=== PATIENT | female | born 1990 | race Caucasian/White ===

== ENCOUNTER 2020-08-05 16:13 | Inpatient (IN) | payer MEDICARE, MEDICAID, SELFPAY ==
[2020-08-05 16:49] VITALS: BP 136/85; PULSE 73; RESP 20; TEMP 37.2; O2SAT 99; BMI 26.2
[2020-08-05 17:12] VITALS: RESP 20
--- NOTE | 2020-08-05 17:20 | PC.NURSE ---
Pt currently in room, awaiting MD evaluation. [facility] called, requested evaluation to be faxed. Unclear whether she is a bed search- [facility] will call to confirm. Spoke w/ Shawn at [facility].
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
[2020-08-05 18:00] VITALS: RESP 18
--- NOTE | 2020-08-05 18:02 | PC.NURSE ---
Provider in to evaluate. Pt continues to present w/ organized thought process, pleasant. Per N, pt is a bed search. Continue to await evaluation.
--- NOTE | 2020-08-05 18:03 | PC.NURSE ---
Evaluation requested by CARE team.
--- NOTE | 2020-08-05 18:52 | PC.NURSE ---
[facility] returned call, spoke to CARE team, pt is an inpatient bed search. C Brandi aware, given evaluation. Labs cancelled per Amisha Paz .
[2020-08-05 19:53] VITALS: BP 124/79; PULSE 80; RESP 20; TEMP 36.8; O2SAT 98
--- NOTE | 2020-08-05 19:53 | PC.NURSE ---
Patient in her room watching TV, calm and quiet, compliant with care, compliant COVID swab/sent to lab/pending result. Denied distress, will continue to monitor.
[2020-08-05 21:11] LABS: COVID-19 Test Negative (Negative); IDNOW Serial# 9DD0AD1C
[2020-08-05 21:52] LABS: UPreg QC Valid YES; Urine Pregnancy NEGATIVE (NEGATIVE)
--- NOTE | 2020-08-05 22:19 | PC.NURSE ---
Patient is in her room watching TV, patient notified that her COVID test is negative, when asked about her medication patient reported she is not on any medication at this time, will continue to monitor.
[2020-08-05 22:26] LABS: Amphetamine Screen Urine Not Detected (Not Detect); Barbiturates, Urine Not Detected (Not Detect); Benzodiazepines Screen Urine Not Detected (Not Detect); Cannabinoid Screen Urine Not Detected (Not Detect); Cocaine Screen Urine Not Detected (Not Detect); Opiate Screen Urine Not Detected (Not Detect); Phencyclidine Screen Urine Not Detected (Not Detect)
[2020-08-05 23:19] VITALS: BP 120/53; PULSE 97; O2SAT 98
[2020-08-05 23:45] VITALS: BP 144/78; PULSE 77; RESP 17; TEMP 36.8; O2SAT 100
[2020-08-06] MEDS: Ibuprofen 600 MG TABLET PO (01:32)
--- NOTE | 2020-08-06 01:35 | PC.NURSE ---
Patient reported menstrual cramp pain 5/10, administered ibprofen 600 mg as ordered/pt compliant/pending effect.
--- NOTE | 2020-08-06 07:06 | PC.NURSE ---
Report received from PRAVEENA Payne. Pt resting, resp unlabored.
[2020-08-06 08:00] VITALS: RESP 16
[2020-08-06 10:00] VITALS: BP 114/72; PULSE 80; RESP 20; TEMP 36.2
--- NOTE | 2020-08-06 11:22 | PC.NURSE ---
Pt resting, resp unlabored.
[2020-08-06 12:00] VITALS: RESP 18
[2020-08-06 13:58] VITALS: RESP 20
--- NOTE | 2020-08-06 14:43 | PC.NURSE ---
Per Jovani Rowland, pt to be admitted to at approximately 1500. Admission labwork reviewed w/ provider- basic labs completed. Pt aware that she will be going to . No concerns reported.
--- NOTE | 2020-08-06 14:58 | PC.NURSE ---
Report given to Megan GRISSOM.
[2020-08-06 15:06] LABS: MANUAL DIFF FLAG NO
[2020-08-06 15:07] LABS: Basophils Percent Auto 0.3 % (0-2); Eosinophils Absolute Auto 0.1 X10*3/uL (0.0-0.4); Eosinophils Percent Auto 1.3 % (0-4); Hematocrit 37.9 % (37-47); Hemoglobin 12.5 g/dl (12.0-16.0); Imm Gran Abs Auto 0.04 X10*3/uL (0.00-0.03); Imm Gran Pct Auto 0.5 % (0.0-0.4); Lymphocytes Absolute Auto 1.7 X10*3/uL (1.2-4.9); Lymphocytes Percent Auto 19.7 % (20-40); Mean Corpuscular Hemoglobin 30.1 pg (27.0-33.0); Mean Corpuscular Volume 91.3 fL (80-98); Mean Platelet Volume 11.7 fL (9.4-12.3); Monocytes Absolute Auto 0.6 X10*3/uL (0.1-1.2); Neutrophils Absolute Auto 6.2 X10*3/uL (2.0-8.3); Neutrophils Percent Auto 71.2 % (45-73); Platelet Count 216 X10*3/uL (160-400); Red Blood Count 4.15 X10*6/uL (4.20-5.50); Red Cell Distribution Width 11.7 % (11.0-16.0); White Blood Count 8.7 X10*3/uL (4.8-10.8)
[2020-08-06 15:29] LABS: Alanine Aminotransferase 10 U/L (0-31); Albumin Level 4.3 g/dL (3.5-5.0); Alkaline Phosphatase 43 U/L (39-117); Anion Gap 14 (12-20); Aspartate Amino Transferase 12 U/L (5-31); Bilirubin Total 0.4 mg/dL (0.0-1.0); Blood Urea Nitrogen 10 mg/dL (9-16); Calcium 8.7 mg/dL (8.4-10.2); Carbon Dioxide 26 mmol/L (22-29); Chloride 107 mmol/L (96-108); Creatinine Clr Calc Pharmacy 122.2; Estimated Glomerular Filt Rate > 60; Glucose Random 61 mg/dL (60-115); Potassium 4.2 mmol/l (3.3-5.1); Sodium 143 mmol/L (135-145); Total Protein 6.8 g/dL (6.5-8.0)
--- NOTE | 2020-08-06 15:41 | PC.NURSE ---
Report received. PT is sitting in her room queitly, waiting to take a shower. Calm and cooperative. Inpatient bed search in progress.
[2020-08-06 18:00] VITALS: BP 128/74; PULSE 72; RESP 16; TEMP 36.9; O2SAT 100
[2020-08-06] MEDS: Acetaminophen 325 MG TABLET 650 MG PO (19:01)
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
[2020-08-07] MEDS: Acetaminophen 325 MG TABLET 650 MG PO (03:11)
[2020-08-07 06:00] VITALS: BP 136/64; PULSE 69; RESP 16; TEMP 36.7; O2SAT 98
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
[2020-08-07 10:25] LABS: Cholesterol 152 mg/dL; Glucose Fasting 98 mg/dL (60-99); HDL Cholesterol 59 mg/dL; LDL Cholesterol Calculated 84 mg/dl; Triglycerides 47 mg/dL
[2020-08-07] MEDS: Calcium Carbonate 750 MG TAB.CHEW PO (11:22)
[2020-08-07 15:45] VITALS: BP 111/68; PULSE 70; TEMP 35.8
--- NOTE | 2020-08-07 23:47 | PC.NURSE ---
Upon meeting pt on 1:1 this evening, pt requested that she be receiving the following medications: a probiotic, a multivitamin, and fishoil capsules. Pt refused scheduled Ativan and Zyprexa at HS. Pt was focused on vague complaints of fatigue. Pt said I feel really drained; I just want to go home. Pt was unable to rate anxiety and depression, but stated it is situational.
[2020-08-08 06:25] VITALS: BP 92/50; PULSE 56; RESP 16; TEMP 36.6; O2SAT 99
--- NOTE | 2020-08-08 06:42 | HO.PSYCHPN ---
Subjective Subjective Date of Service: 08/08/20 Reason For Visit: Psychiatric Subjective Notes: Conditional Voluntary Interim History: Pt remains disorganized. Circumstantial in speech but often logical. Denies SI/HI/AH. Reported that she put phone down as it smelled . Has consented to allow contact w outside SW. Refuses meds. Only wants natural remedies Medication Compliance: No Side effects from medications: No Attending Groups: Yes Review of Systems Review of Systems Yes all other systems are reviewed and are negative Mental Status Exam Mental Status Exam Patient Appearance: Disheveled and Inappropriate (Wearing a turban ) Patient Orientation: Person, Place, Time and Situation Level of Consciousness: Awake Patient Behavior: Cooperative, Suspicious and Avoidant Mood Description: Suspicious Affect Description: Calm Patient Cognition Impaired: No Speech Pattern: Rambling and Inappropriate Memory Description: Intact Hallucinations: None Delusions: Paranoid Ideation Thought Process: Slowed Thinking and Confusion Thought Content: positive for Loose Associations Judgement: Poor Diagnostics Vital Signs (24Hr): Vital Signs - 24 hr 08/07/20 15:45 Temperature 96.5 F L Pulse Rate 70 Blood Pressure 111/68 Body Mass Index 26.2 Labs Results: 08/06/20 14:44 08/06/20 14:44 Labs: Laboratory Results - last 48 hr 08/06/20 08/06/20 08/07/20 14:44 14:44 09:38 WBC 8.7 RBC 4.15 L Hgb 12.5 Hct 37.9 MCV 91.3 MCH 30.1 MCHC 33.0 RDW 11.7 Plt Count 216 MPV 11.7 Immature Gran % (Auto) 0.5 H Neut % (Auto) 71.2 Lymph % (Auto) 19.7 L [place] % (Auto) 7.0 Eos % (Auto) 1.3 Baso % (Auto) 0.3 Lymph # (Auto) 1.7 [place] # (Auto) 0.6 Eos # (Auto) 0.1 Baso # (Auto) 0.0 Abs Immat Gran (auto) 0.04 H Absolute Neuts (auto) 6.2 Absolute Nucleated RBC 0.000 Nucleated RBC % (auto) 0.0 Sodium 143 Potassium 4.2 Chloride 107 Carbon Dioxide 26 Anion Gap 14 BUN 10 Creatinine 0.68 Estim Creat Clear Calc 122.2 Estimated GFR > 60 Random Glucose 61 Fasting Glucose 98 Calcium 8.7 Total Bilirubin 0.4 AST 12 ALT 10 Alkaline Phosphatase 43 Total Protein 6.8 Albumin 4.3 Triglycerides 47 Cholesterol 152 LDL Cholesterol, Calc 84 HDL Cholesterol 59 Medications Medications Current Medications Generic Name Dose Route Start Last Admin Trade Name Freq PRN Reason Stop Dose Admin Acetaminophen 650 mg 08/06/20 16:22 08/07/20 03:11 Acetaminophen 325 Mg Tablet PO 650 mg Q6H PRN Administration Headache/Pain Mild Scale (1-3) Al Hydroxide/Mg Hydroxide 30 ml 08/06/20 16:22 Magnesium Hydrox/Alum Hydrox 30 Ml Oral.Susp PO Q6H PRN Heartburn/Nausea Calcium Carbonate 750 mg 08/07/20 11:00 08/07/20 11:22 Calcium Carbonate 750 Mg Tab.Chew PO 750 mg Q6H PRN Administration Heartburn Hydroxyzine HCl 25 mg 08/06/20 16:22 Hydroxyzine Hcl 25 Mg Tablet PO BEDTIME PRN Anxiety Ibuprofen 400 mg 08/07/20 10:58 Ibuprofen 400 Mg Tablet PO Q4H PRN Pain, Moderate (Pain Scale 4-6 Lorazepam 1 mg 08/06/20 21:00 08/07/20 22:04 Lorazepam 1 Mg Tablet PO Not Given BID BENJA Lorazepam 1 mg 08/06/20 17:00 Lorazepam 1 Mg Tablet PO RQ4H PRN anxiety/restlessness Magnesium Hydroxide 30 ml 08/06/20 16:22 Milk Of Magnesia 30 Ml Oral.Susp PO DAILY PRN Constipation Olanzapine 10 mg 08/06/20 17:00 Olanzapine Odt 10 Mg Tab.Rapdis TRANSLINGU BID PRN anxiety/restlessness Olanzapine 10 mg 08/06/20 21:00 08/07/20 22:05 Olanzapine Odt 10 Mg Tab.Rapdis TRANSLINGU Not Given BID BENJA Trazodone HCl 50 mg 08/06/20 16:22 Trazodone Hcl 50 Mg Tablet PO BEDTIME PRN Insomnia Allergies Allergies Allergy/AdvReac Type Severity Reaction Status Date / Time No Known Allergies Allergy Verified 08/05/20 19:24 Assessment & Plan Greater than 50% of the session was spent on counseling and/or coordination of care Ct Collateral info collection. Yanni JUDD Encourage med compliance
[2020-08-08 07:00] VITALS: BMI 26.4
[2020-08-08] MEDS: Milk of Magnesia 30 ML ORAL.SUSP PO (09:13)
[2020-08-08] MEDS: Sennosides 8.6 MG TABLET 17.2 MG PO ×2 (13:23→20:54)
[2020-08-08 19:20] VITALS: BP 121/75; PULSE 88; TEMP 36.7
[2020-08-08] MEDS: Ibuprofen 400 MG TABLET PO (20:58)
[2020-08-09 06:17] VITALS: BP 82/44; PULSE 54; RESP 16; TEMP 36.2; O2SAT 99
--- NOTE | 2020-08-09 06:25 | HO.PSYCHPN ---
Subjective Subjective Date of Service: 08/09/20 Reason For Visit: Psychiatric Interim History: Pt remains disorganized. Circumstantial in speech but often logical. Denies SI/HI/AH. Has consented to allow contact w outside SW. Refuses meds. Only wants natural remedies .Was informed that she has warrants out for her . SW to contact global chief experience officer Review of Systems Review of Systems Constitutional: No Fever, No Chills ENT/Mouth: No Ear Pain, No Nasal Congestion, No sore throat Eyes: No Eye Pain, No Swelling, No Redness Cardiovascular: No Chest Pain, No SOB Respiratory: No Cough, No Sputum, No Dyspnea Gastrointestinal: No Nausea, No Vomiting, No Diarrhea, No Hematochezia, No Melena Genitourinary: No Dysuria, No Urinary Frequency, No Hematuria Musculoskeletal: No Myalgias Skin: No Skin Lesions, No rash Neuro: No Weakness, No Numbness, No Paresthesias, No Dizziness, No Headache Psych: No Anxiety, No Depression, No SI/HI Heme/Lymph: No Lymphadenopathy Endocrine: No Polyuria, No Polydipsia Mental Status Exam Mental Status Exam Patient Appearance: Disheveled and Inappropriate (Wearing a turban ) Patient Orientation: Person, Place, Time and Situation Level of Consciousness: Awake Patient Behavior: Cooperative, Suspicious and Avoidant Mood Description: Suspicious Affect Description: Calm Patient Cognition Impaired: No Ability to Follow Directions: Good Speech Pattern: Rambling and Inappropriate Memory Description: Intact Diagnostics Vital Signs (24Hr): Vital Signs - 24 hr 08/08/20 19:20 Temperature 98.1 F Pulse Rate 88 Blood Pressure 121/75 Body Mass Index 26.4 Labs Results: 08/06/20 14:44 08/06/20 14:44 Labs: Laboratory Results - last 48 hr 08/07/20 09:38 Fasting Glucose 98 Triglycerides 47 Cholesterol 152 LDL Cholesterol, Calc 84 HDL Cholesterol 59 Medications Medications Current Medications Generic Name Dose Route Start Last Admin Trade Name Freq PRN Reason Stop Dose Admin Acetaminophen 650 mg 08/06/20 16:22 08/07/20 03:11 Acetaminophen 325 Mg Tablet PO 650 mg Q6H PRN Administration Headache/Pain Mild Scale (1-3) Al Hydroxide/Mg Hydroxide 30 ml 08/06/20 16:22 Magnesium Hydrox/Alum Hydrox 30 Ml Oral.Susp PO Q6H PRN Heartburn/Nausea Calcium Carbonate 750 mg 08/07/20 11:00 08/07/20 11:22 Calcium Carbonate 750 Mg Tab.Chew PO 750 mg Q6H PRN Administration Heartburn Hydroxyzine HCl 25 mg 08/06/20 16:22 Hydroxyzine Hcl 25 Mg Tablet PO BEDTIME PRN Anxiety Ibuprofen 400 mg 08/07/20 10:58 08/08/20 20:58 Ibuprofen 400 Mg Tablet PO 400 mg Q4H PRN Administration Pain, Moderate (Pain Scale 4-6 Lorazepam 1 mg 08/06/20 21:00 08/08/20 21:00 Lorazepam 1 Mg Tablet PO Not Given BID BENJA Lorazepam 1 mg 08/06/20 17:00 Lorazepam 1 Mg Tablet PO RQ4H PRN anxiety/restlessness Magnesium Hydroxide 30 ml 08/06/20 16:22 08/08/20 09:13 Milk Of Magnesia 30 Ml Oral.Susp PO 30 ml DAILY PRN Administration Constipation Multivitamins/Minerals 1 tab 08/09/20 09:00 08/08/20 13:23 Multivitamin With Minerals Tablet PO 1 tab DAILY BENJA Administration Olanzapine 10 mg 08/06/20 17:00 Olanzapine Odt 10 Mg Tab.Rapdis TRANSLINGU BID PRN anxiety/restlessness Olanzapine 10 mg 08/06/20 21:00 08/08/20 21:01 Olanzapine Odt 10 Mg Tab.Rapdis TRANSLINGU Not Given BID BENJA Senna 17.2 mg 08/08/20 12:11 08/08/20 20:54 Sennosides 8.6 Mg Tablet PO 17.2 mg BID PRN Administration Constipation Trazodone HCl 50 mg 08/06/20 16:22 Trazodone Hcl 50 Mg Tablet PO BEDTIME PRN Insomnia Allergies Allergies Allergy/AdvReac Type Severity Reaction Status Date / Time No Known Allergies Allergy Verified 08/05/20 19:24 Assessment & Plan Assessment & Plan (1) Psychosis: Status: Acute Code(s): F29 - Unspecified psychosis not due to a substance or known physiological condition (2) Mood disorder: Status: Acute Code(s): F39 - Unspecified mood [affective] disorder Assessment and Plan: q15, cv Start OLZ but refuses Collateral from PO/ Local services. Coordination of care Greater than 50% of the session was spent on counseling and/or coordination of care
[2020-08-09 09:13] VITALS: BP 130/64; PULSE 91
[2020-08-09] MEDS: Sennosides 8.6 MG TABLET 17.2 MG PO (09:44)
[2020-08-09 18:00] VITALS: BP 125/70; PULSE 91; TEMP 37.1
[2020-08-10 06:00] VITALS: BP 107/56; PULSE 64; TEMP 36.3
--- NOTE | 2020-08-10 11:03 | P.PNPSI_ITS ---
Subjective Subjective Date of Service: 08/10/20 Reason For Visit: Psychiatric Subjective Notes: Conditional Voluntary Interim History: focused on somatic- issues with hemorrhoids, ? trouble with bm but also gas- refusing antipsychotics would like peptobismo sleep ok - denies si/hi/psychosis thoughts seem kind of disorganized Medication Compliance: No (doesn't want antipsychotics) Side effects from medications: No Attending Groups: Intermittent Review of Systems Acute medical concerns: Yes gi issues ? from food/ eating hospital food- which she likes Medical Review of Systems: unchanged Mental Status Exam Mental Status Exam Patient Appearance: Disheveled Patient Orientation: Person, Place and Time Level of Consciousness: Awake Patient Behavior: Talkative and Distractible Mood Description: Anxious Patient Cognition Impaired: No Ability to Follow Directions: Fair Speech Pattern: Rambling Memory Description: Intact Hallucinations: None Thought Process: Distracted Thought Content: positive for Disorganized Depressive Symptoms: Diff. Making Decisions, Unexplained Stomach Pain and Diffic ulty Concentrating Abnormal Motor Activity Signs and Symptoms: Restlessness Judgement: Fair Diagnostics Vital Signs (24Hr): Vital Signs - 24 hr 08/09/20 18:00 08/10/20 06:00 Temperature 98.7 F 97.4 F Pulse Rate 91 64 Blood Pressure 125/70 107/56 L Body Mass Index 26.4 Labs Results: 08/06/20 14:44 08/06/20 14:44 Medications Medications Current Medications Generic Name Dose Route Start Last Admin Trade Name Freq PRN Reason Stop Dose Admin Acetaminophen 650 mg 08/06/20 16:22 08/07/20 03:11 Acetaminophen 325 Mg Tablet PO 650 mg Q6H PRN Administration Headache/Pain Mild Scale (1-3) Al Hydroxide/Mg Hydroxide 30 ml 08/06/20 16:22 Magnesium Hydrox/Alum Hydrox 30 Ml Oral.Susp PO Q6H PRN Heartburn/Nausea Calcium Carbonate 750 mg 08/07/20 11:00 08/07/20 11:22 Calcium Carbonate 750 Mg Tab.Chew PO 750 mg Q6H PRN Administration Heartburn Hydroxyzine HCl 25 mg 08/06/20 16:22 Hydroxyzine Hcl 25 Mg Tablet PO BEDTIME PRN Anxiety Ibuprofen 400 mg 08/07/20 10:58 08/08/20 20:58 Ibuprofen 400 Mg Tablet PO 400 mg Q4H PRN Administration Pain, Moderate (Pain Scale 4-6 Lorazepam 1 mg 08/06/20 21:00 12/05/20 09:05 Lorazepam 1 Mg Tablet PO Not Given BID BENJA Lorazepam 1 mg 08/06/20 17:00 Lorazepam 1 Mg Tablet PO RQ4H PRN anxiety/restlessness Magnesium Hydroxide 30 ml 08/06/20 16:22 08/08/20 09:13 Milk Of Magnesia 30 Ml Oral.Susp PO 30 ml DAILY PRN Administration Constipation Multivitamins/Minerals 1 tab 08/09/20 09:00 08/10/20 09:04 Multivitamin With Minerals Tablet PO 1 tab DAILY BENJA Administration Olanzapine 10 mg 08/06/20 17:00 Olanzapine Odt 10 Mg Tab.Rapdis TRANSLINGU BID PRN anxiety/restlessness Olanzapine 10 mg 08/06/20 21:00 08/10/20 09:04 Olanzapine Odt 10 Mg Tab.Rapdis TRANSLINGU Not Given BID BENJA Senna 17.2 mg 08/08/20 12:11 08/09/20 09:44 Sennosides 8.6 Mg Tablet PO 17.2 mg BID PRN Administration Constipation Trazodone HCl 50 mg 08/06/20 16:22 Trazodone Hcl 50 Mg Tablet PO BEDTIME PRN Insomnia Allergies Allergies Allergy/AdvReac Type Severity Reaction Status Date / Time No Known Allergies Allergy Verified 08/05/20 19:24 Assessment & Plan Assessment & Plan (1) Psychosis: Status: Acute Code(s): F29 - Unspecified psychosis not due to a substance or known physiological condition Assessment and Plan: dced standing ativan, just prn ? low dose risperidone Greater than 50% of the session was spent on counseling and/or coordination of care
[2020-08-10 18:00] VITALS: BP 114/68; PULSE 87; TEMP 37.2
[2020-08-10] MEDS: Sennosides 8.6 MG TABLET 17.2 MG PO (20:25)
[2020-08-11 06:00] VITALS: BP 110/58; PULSE 63; TEMP 36.5
[2020-08-11] MEDS: Sennosides 8.6 MG TABLET 17.2 MG PO ×2 (08:33→22:15)
[2020-08-11] MEDS: Bismuth Subsalicylate 262 MG TABLET PO (13:36)
--- NOTE | 2020-08-11 14:38 | HO.PSYCHPN ---
Subjective Subjective Date of Service: 08/11/20 Reason For Visit: Psychiatric Subjective Notes: Conditional Voluntary Interim History: Pt discussed not wanting to take medications feels her biggest problem is grief/loss and needs to learn how to deal with that She has had psychiatrists in past and has a therapist She feels she has to work things through though it is hard for her to discuss what Medication Compliance: No Side effects from medications: No Attending Groups: Intermittent Review of Systems Acute medical concerns: No Medical Review of Systems: unchanged Review of Systems: get gas when I talk to someone Mental Status Exam Mental Status Exam Patient Appearance: Disheveled Patient Orientation: Person, Place and Time Level of Consciousness: Awake Patient Behavior: Talkative and Distractible Mood Description: Anxious Patient Cognition Impaired: No Ability to Follow Directions: Fair Speech Pattern: Rambling Memory Description: Intact Hallucinations: None Thought Process: Distracted Thought Content: positive for Disorganized Depressive Symptoms: Diff. Making Decisions, Unexplained Stomach Pain and Difficulty Concentrating Abnormal Motor Activity Signs and Symptoms: Restlessness Judgement: Fair Diagnostics Vital Signs (24Hr): Vital Signs - 24 hr 08/10/20 18:00 08/11/20 06:00 Temperature 98.9 F 97.7 F Pulse Rate 87 63 Blood Pressure 114/68 110/58 L Body Mass Index 26.4 Labs Results: 08/06/20 14:44 08/06/20 14:44 Medications Medications Current Medications Generic Name Dose Route Start Last Admin Trade Name Freq PRN Reason Stop Dose Admin Acetaminophen 650 mg 08/06/20 16:22 08/07/20 03:11 Acetaminophen 325 Mg Tablet PO 650 mg Q6H PRN Administration Headache/Pain Mild Scale (1-3) Al Hydroxide/Mg Hydroxide 30 ml 08/06/20 16:22 Magnesium Hydrox/Alum Hydrox 30 Ml Oral.Susp PO Q6H PRN Heartburn/Nausea Bismuth Subsalicylate 262 mg 08/10/20 13:57 08/11/20 13:36 Bismuth Subsalicylate 262 Mg Tablet PO 262 mg QID PRN Administration GI Upset Calcium Carbonate 750 mg 08/07/20 11:00 08/07/20 11:22 Calcium Carbonate 750 Mg Tab.Chew PO 750 mg Q6H PRN Administration Heartburn Hydroxyzine HCl 25 mg 08/06/20 16:22 Hydroxyzine Hcl 25 Mg Tablet PO BEDTIME PRN Anxiety Ibuprofen 400 mg 08/07/20 10:58 08/08/20 20:58 Ibuprofen 400 Mg Tablet PO 400 mg Q4H PRN Administration Pain, Moderate (Pain Scale 4-6 Lorazepam 1 mg 08/06/20 17:00 Lorazepam 1 Mg Tablet PO RQ4H PRN anxiety/restlessness Magnesium Hydroxide 30 ml 08/06/20 16:22 08/08/20 09:13 Milk Of Magnesia 30 Ml Oral.Susp PO 30 ml DAILY PRN Administration Constipation Multivitamins/Minerals 1 tab 08/09/20 09:00 08/11/20 08:33 Multivitamin With Minerals Tablet PO 1 tab DAILY BENJA Administration Olanzapine 10 mg 08/06/20 17:00 Olanzapine Odt 10 Mg Tab.Rapdis TRANSLINGU BID PRN anxiety/restlessness Olanzapine 10 mg 08/06/20 21:00 08/11/20 08:32 Olanzapine Odt 10 Mg Tab.Rapdis TRANSLINGU Not Given BID BENJA Senna 17.2 mg 08/08/20 12:11 08/11/20 08:33 Sennosides 8.6 Mg Tablet PO 17.2 mg BID PRN Administration Constipation Trazodone HCl 50 mg 08/06/20 16:22 Trazodone Hcl 50 Mg Tablet PO BEDTIME PRN Insomnia Allergies Allergies Allergy/AdvReac Type Severity Reaction Status Date / Time No Known Allergies Allergy Verified 08/05/20 19:24 Assessment & Plan Assessment & Plan (1) Psychosis: Status: Acute Code(s): F29 - Unspecified psychosis not due to a substance or known physiological condition Assessment and Plan: not wanting to take medications Greater than 50% of the session was spent on counseling and/or coordination of care
[2020-08-11 18:00] VITALS: BP 123/69; PULSE 78; TEMP 36.8
[2020-08-11] MEDS: hydrOXYzine HCL 25 MG TABLET PO (22:52)
[2020-08-12 06:30] VITALS: BP 99/50; PULSE 58; RESP 16; TEMP 36.8; O2SAT 100
--- NOTE | 2020-08-12 06:49 | HO.PSYCHPN ---
Subjective Subjective Date of Service: 08/12/20 Reason For Visit: Psychiatric Interim History: Interval history noted. No SI HI but remains vague/disorganized with rambling circumstantial speech. Agrees to work with OP providers Review of Systems Review of Systems Constitutional: No Fever, No Chills ENT/Mouth: No Ear Pain, No Nasal Congestion, No sore throat Eyes: No Eye Pain, No Swelling, No Redness Cardiovascular: No Chest Pain, No SOB Respiratory: No Cough, No Sputum, No Dyspnea Gastrointestinal: No Nausea, No Vomiting, No Diarrhea, No Hematochezia, No Melena Genitourinary: No Dysuria, No Urinary Frequency, No Hematuria Musculoskeletal: No Myalgias Skin: No Skin Lesions, No rash Neuro: No Weakness, No Numbness, No Paresthesias, No Dizziness, No Headache Psych: No Anxiety, No Depression, No SI/HI Heme/Lymph: No Lymphadenopathy Endocrine: No Polyuria, No Polydipsia Mental Status Exam Mental Status Exam Patient Appearance: Disheveled Patient Orientation: Person, Place and Time Level of Consciousness: Awake Patient Behavior: Talkative and Distractible Mood Description: Anxious Affect Description: Calm Patient Cognition Impaired: No Ability to Follow Directions: Fair Speech Pattern: Rambling Memory Description: Intact Diagnostics Vital Signs (24Hr): Vital Signs - 24 hr 08/11/20 18:00 Temperature 98.3 F Pulse Rate 78 Blood Pressure 123/69 Body Mass Index 26.4 Labs Results: 08/06/20 14:44 08/06/20 14:44 Medications Medications Current Medications Generic Name Dose Route Start Last Admin Trade Name Freq PRN Reason Stop Dose Admin Acetaminophen 650 mg 08/06/20 16:22 08/07/20 03:11 Acetaminophen 325 Mg Tablet PO 650 mg Q6H PRN Administration Headache/Pain Mild Scale (1-3) Al Hydroxide/Mg Hydroxide 30 ml 08/06/20 16:22 Magnesium Hydrox/Alum Hydrox 30 Ml Oral.Susp PO Q6H PRN Heartburn/Nausea Bismuth Subsalicylate 262 mg 08/10/20 13:57 08/11/20 13:36 Bismuth Subsalicylate 262 Mg Tablet PO 262 mg QID PRN Administration GI Upset Calcium Carbonate 750 mg 08/07/20 11:00 08/07/20 11:22 Calcium Carbonate 750 Mg Tab.Chew PO 750 mg Q6H PRN Administration Heartburn Hydroxyzine HCl 25 mg 08/06/20 16:22 08/11/20 22:52 Hydroxyzine Hcl 25 Mg Tablet PO 25 mg BEDTIME PRN Administration Anxiety Ibuprofen 400 mg 08/07/20 10:58 08/08/20 20:58 Ibuprofen 400 Mg Tablet PO 400 mg Q4H PRN Administration Pain, Moderate (Pain Scale 4-6 Magnesium Hydroxide 30 ml 08/06/20 16:22 08/08/20 09:13 Milk Of Magnesia 30 Ml Oral.Susp PO 30 ml DAILY PRN Administration Constipation Multivitamins/Minerals 1 tab 08/09/20 09:00 08/11/20 08:33 Multivitamin With Minerals Tablet PO 1 tab DAILY BENJA Administration Olanzapine 10 mg 08/06/20 17:00 Olanzapine Odt 10 Mg Tab.Rapdis TRANSLINGU BID PRN anxiety/restlessness Olanzapine 10 mg 08/06/20 21:00 08/11/20 21:13 Olanzapine Odt 10 Mg Tab.Rapdis TRANSLINGU Not Given BID BENJA Senna 17.2 mg 08/08/20 12:11 08/11/20 22:15 Sennosides 8.6 Mg Tablet PO 17.2 mg BID PRN Administration Constipation Trazodone HCl 50 mg 08/06/20 16:22 Trazodone Hcl 50 Mg Tablet PO BEDTIME PRN Insomnia Allergies Allergies Allergy/AdvReac Type Severity Reaction Status Date / Time No Known Allergies Allergy Verified 08/05/20 19:24 Assessment & Plan Assessment & Plan (1) Psychosis: Status: Acute Code(s): F29 - Unspecified psychosis not due to a substance or known physiological condition Assessment and Plan: not wanting to take medications but agrees to see Psych MD. Greater than 50% of the session was spent on counseling and/or coordination of care
[2020-08-12] MEDS: Sennosides 8.6 MG TABLET 17.2 MG PO ×2 (09:18→20:57)
[2020-08-12] MEDS: Bismuth Subsalicylate 262 MG TABLET PO ×2 (09:18→20:57)
[2020-08-12 16:28] VITALS: BP 139/72; PULSE 81; TEMP 36.4
[2020-08-13 06:00] VITALS: BP 99/53; PULSE 65; RESP 16; TEMP 36; O2SAT 97
[2020-08-13] MEDS: Sennosides 8.6 MG TABLET 17.2 MG PO ×2 (08:46→18:28)
--- NOTE | 2020-08-13 09:15 | HO.PSYCHPN ---
Subjective Subjective Date of Service: 08/14/20 Reason For Visit: Psychiatric Interim History: Interval history noted. No SI HI but remains vague/disorganized with rambling circumstantial speech. Agrees to work with OP providers. SW coordinating with [facility] and [facility] (after incarceration program) Review of Systems Review of Systems Constitutional: No Fever, No Chills ENT/Mouth: No Ear Pain, No Nasal Congestion, No sore throat Eyes: No Eye Pain, No Swelling, No Redness Cardiovascular: No Chest Pain, No SOB Respiratory: No Cough, No Sputum, No Dyspnea Gastrointestinal: No Nausea, No Vomiting, No Diarrhea, No Hematochezia, No Melena Genitourinary: No Dysuria, No Urinary Frequency, No Hematuria Musculoskeletal: No Myalgias Skin: No Skin Lesions, No rash Neuro: No Weakness, No Numbness, No Paresthesias, No Dizziness, No Headache Psych: No Anxiety, No Depression, No SI/HI Heme/Lymph: No Lymphadenopathy Endocrine: No Polyuria, No Polydipsia Mental Status Exam Mental Status Exam Patient Appearance: Disheveled Patient Orientation: Person, Place and Time Level of Consciousness: Awake Patient Behavior: Talkative and Distractible Mood Description: Anxious Affect Description: Calm Patient Cognition Impaired: No Ability to Follow Directions: Fair Speech Pattern: Rambling Memory Description: Intact Diagnostics Vital Signs (24Hr): Vital Signs - 24 hr 08/12/20 16:28 08/13/20 06:00 Temperature 97.5 F 96.8 F Pulse Rate 81 65 Respiratory Rate 16 Blood Pressure 139/72 99/53 L Pulse Oximetry 97 Body Mass Index 26.4 Labs Results: 08/06/20 14:44 08/06/20 14:44 Medications Medications Current Medications Generic Name Dose Route Start Last Admin Trade Name Freq PRN Reason Stop Dose Admin Acetaminophen 650 mg 08/06/20 16:22 08/07/20 03:11 Acetaminophen 325 Mg Tablet PO 650 mg Q6H PRN Administration Headache/Pain Mild Scale (1-3) Al Hydroxide/Mg Hydroxide 30 ml 08/06/20 16:22 Magnesium Hydrox/Alum Hydrox 30 Ml Oral.Susp PO Q6H PRN Heartburn/Nausea Bismuth Subsalicylate 262 mg 08/10/20 13:57 08/12/20 20:57 Bismuth Subsalicylate 262 Mg Tablet PO 262 mg QID PRN Administration GI Upset Calcium Carbonate 750 mg 08/07/20 11:00 08/07/20 11:22 Calcium Carbonate 750 Mg Tab.Chew PO 750 mg Q6H PRN Administration Heartburn Hydroxyzine HCl 25 mg 08/06/20 16:22 08/11/20 22:52 Hydroxyzine Hcl 25 Mg Tablet PO 25 mg BEDTIME PRN Administration Anxiety Ibuprofen 400 mg 08/07/20 10:58 08/08/20 20:58 Ibuprofen 400 Mg Tablet PO 400 mg Q4H PRN Administration Pain, Moderate (Pain Scale 4-6 Magnesium Hydroxide 30 ml 08/06/20 16:22 08/08/20 09:13 Milk Of Magnesia 30 Ml Oral.Susp PO 30 ml DAILY PRN Administration Constipation Multivitamins/Minerals 1 tab 08/09/20 09:00 08/13/20 08:46 Multivitamin With Minerals Tablet PO 1 tab DAILY BENJA Administration Olanzapine 10 mg 08/06/20 17:00 Olanzapine Odt 10 Mg Tab.Rapdis TRANSLINGU BID PRN anxiety/restlessness Olanzapine 10 mg 08/06/20 21:00 08/13/20 08:51 Olanzapine Odt 10 Mg Tab.Rapdis TRANSLINGU Not Given BID BENJA Senna 17.2 mg 08/08/20 12:11 08/13/20 08:46 Sennosides 8.6 Mg Tablet PO 17.2 mg BID PRN Administration Constipation Trazodone HCl 50 mg 08/06/20 16:22 Trazodone Hcl 50 Mg Tablet PO BEDTIME PRN Insomnia Allergies Allergies Allergy/AdvReac Type Severity Reaction Status Date / Time No Known Allergies Allergy Verified 08/05/20 19:24 Assessment & Plan Assessment & Plan (1) Psychosis: Status: Acute Code(s): F29 - Unspecified psychosis not due to a substance or known physiological condition Assessment and Plan: not wanting to take medications but agrees to see Psych MD. Greater than 50% of the session was spent on counseling and/or coordination of care
[2020-08-13 18:00] VITALS: BP 125/93; PULSE 94; TEMP 36.8
[2020-08-13] MEDS: Bismuth Subsalicylate 262 MG TABLET PO (18:28)
[2020-08-14 06:45] VITALS: BP 99/52; PULSE 57; RESP 18; TEMP 36.8
[2020-08-14] MEDS: Magnesium Hydrox/Alum Hydrox 30 ML ORAL.SUSP PO (09:45)
[2020-08-14] MEDS: Milk of Magnesia 30 ML ORAL.SUSP PO (09:45)
--- NOTE | 2020-08-14 10:51 | HO.PSYCHPN ---
Subjective Subjective Date of Service: 08/14/20 Reason For Visit: Psychiatric Interim History: Interval history noted. No SI HI but remains vague/disorganized with rambling circumstantial speech. Agrees to work with OP providers. SW coordinating with [facility] and [facility] (after incarceration program). Angry at staff. Threatening to [facility]. Plan for DC Thurs with transportation to [place]. Review of Systems Review of Systems Constitutional: No Fever, No Chills ENT/Mouth: No Ear Pain, No Nasal Congestion, No sore throat Eyes: No Eye Pain, No Swelling, No Redness Cardiovascular: No Chest Pain, No SOB Respiratory: No Cough, No Sputum, No Dyspnea Gastrointestinal: No Nausea, No Vomiting, No Diarrhea, No Hematochezia, No Melena Genitourinary: No Dysuria, No Urinary Frequency, No Hematuria Musculoskeletal: No Myalgias Skin: No Skin Lesions, No rash Neuro: No Weakness, No Numbness, No Paresthesias, No Dizziness, No Headache Psych: No Anxiety, No Depression, No SI/HI Heme/Lymph: No Lymphadenopathy Endocrine: No Polyuria, No Polydipsia Mental Status Exam Mental Status Exam Patient Appearance: Disheveled Patient Orientation: Person, Place and Time Level of Consciousness: Awake Patient Behavior: Talkative and Distractible Mood Description: Anxious Affect Description: Calm Patient Cognition Impaired: No Ability to Follow Directions: Fair Speech Pattern: Rambling Memory Description: Intact Diagnostics Vital Signs (24Hr): Vital Signs - 24 hr 08/13/20 18:00 08/14/20 06:45 Temperature 98.3 F 98.2 F Pulse Rate 94 57 Respiratory Rate 18 Blood Pressure 125/93 H 99/52 L Body Mass Index 26.4 Labs Results: 08/06/20 14:44 08/06/20 14:44 Medications Medications Current Medications Generic Name Dose Route Start Last Admin Trade Name Freq PRN Reason Stop Dose Admin Acetaminophen 650 mg 08/06/20 16:22 08/07/20 03:11 Acetaminophen 325 Mg Tablet PO 650 mg Q6H PRN Administration Headache/Pain Mild Scale (1-3) Al Hydroxide/Mg Hydroxide 30 ml 08/06/20 16:22 08/14/20 09:45 Magnesium Hydrox/Alum Hydrox 30 Ml Oral.Susp PO 30 ml Q6H PRN Administration Heartburn/Nausea Bismuth Subsalicylate 262 mg 08/10/20 13:57 08/13/20 18:28 Bismuth Subsalicylate 262 Mg Tablet PO 262 mg QID PRN Administration GI Upset Calcium Carbonate 750 mg 08/07/20 11:00 08/07/20 11:22 Calcium Carbonate 750 Mg Tab.Chew PO 750 mg Q6H PRN Administration Heartburn Hydroxyzine HCl 25 mg 08/06/20 16:22 08/11/20 22:52 Hydroxyzine Hcl 25 Mg Tablet PO 25 mg BEDTIME PRN Administration Anxiety Ibuprofen 400 mg 08/07/20 10:58 08/08/20 20:58 Ibuprofen 400 Mg Tablet PO 400 mg Q4H PRN Administration Pain, Moderate (Pain Scale 4-6 Magnesium Hydroxide 30 ml 08/06/20 16:22 08/14/20 09:45 Milk Of Magnesia 30 Ml Oral.Susp PO 30 ml DAILY PRN Administration Constipation Multivitamins/Minerals 1 tab 08/09/20 09:00 08/14/20 09:21 Multivitamin With Minerals Tablet PO 1 tab DAILY BENJA Administration Olanzapine 10 mg 08/06/20 17:00 Olanzapine Odt 10 Mg Tab.Rapdis TRANSLINGU BID PRN anxiety/restlessness Olanzapine 10 mg 08/06/20 21:00 08/14/20 09:22 Olanzapine Odt 10 Mg Tab.Rapdis TRANSLINGU Not Given BID BENJA Senna 17.2 mg 08/08/20 12:11 08/13/20 18:28 Sennosides 8.6 Mg Tablet PO 17.2 mg BID PRN Administration Constipation Trazodone HCl 50 mg 08/06/20 16:22 Trazodone Hcl 50 Mg Tablet PO BEDTIME PRN Insomnia Allergies Allergies Allergy/AdvReac Type Severity Reaction Status Date / Time No Known Allergies Allergy Verified 08/05/20 19:24 Assessment & Plan Assessment & Plan (1) Psychosis: Status: Acute Code(s): F29 - Unspecified psychosis not due to a substance or known physiological condition Assessment and Plan: not wanting to take medications but agrees to see Psych MD. Greater than 50% of the session was spent on counseling and/or coordination of care
[2020-08-14] MEDS: Sennosides 8.6 MG TABLET 17.2 MG PO (20:33)
[2020-08-14 22:50] VITALS: BP 116/67; PULSE 83; TEMP 36.9
[2020-08-15 08:39] VITALS: BMI 26.6
[2020-08-15] MEDS: Milk of Magnesia 30 ML ORAL.SUSP PO (08:50)
[2020-08-15] MEDS: Sennosides 8.6 MG TABLET 17.2 MG PO (08:50)
[2020-08-15 10:35] VITALS: BP 128/72; PULSE 93; RESP 16; TEMP 36.9; O2SAT 99
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
[2020-08-15] MEDS: Fluconazole 150 MG TABLET PO (11:35)
== END 2020-08-15 13:24 | disposition home or self-care (01) | DRG 753 ==
LOC: HO.ED 08-06 11:45 → HO.PM5 08-06 16:28
PROVIDERS: Nurse Practitioner Family; Admitting Provider Psychiatry & Neurology Psychiatry; Emergency Provider Emergency Medicine Emergency Medical Services; Visit Provider Psychiatry & Neurology Psychiatry
DX: F39 Unspecified mood [affective] disorder (principal); F29 Unspecified psychosis not due to a substance or known physiological condition; Z20.828 Contact with and (suspected) exposure to other viral communicable diseases; Z79.899 Other long term (current) drug therapy
CPT/HCPCS: 36415; 80053; 80061; 80307; 81025; 82947; 85025; 87635; 99223; 99232; 99239; 99285